=== PATIENT | male | born 1975 | race Caucasian/White ===

== ENCOUNTER 2018-03-15 09:26 | Outpatient (CLI) | payer BC, SELFPAY ==
[2018-03-15 10:41] LABS: Cholesterol 227 mg/dL (50-200); HDL Cholesterol 35 mg/dL (40-60); LDL CHOLESTEROL 172 mg/dL (<100); Triglyceride 97 mg/dL (30-150)
== END 2018-03-15 09:46 ==
PROVIDERS: PCP Nurse Practitioner; Visit Provider Family Medicine
DX: Z13.220 Encounter for screening for lipoid disorders (principal)
CPT/HCPCS: 36415; 80061; 83721

== ENCOUNTER 2018-07-09 19:35 | Outpatient (REF) | payer OTHER, SELFPAY ==
[2018-07-09 18:54] LABS: Abs Immature Grans 0.06 k/cumm (0.0-0.09); Absolute Basophil Count 0.02 k/cumm (0.0-0.2); Absolute Eosinophil Count 0.41 k/cumm (0.0-0.7); Absolute Lymphocyte Count 1.57 k/cumm (1.2-3.4); Absolute Monocyte Count 0.86 k/cumm (0.11-0.7); Absolute Neutrophil Count 5.62 k/cumm (1.2-6.7); Basophils % 0.2; Eosinophils % 4.8; HCT 43.1 % (40.0-50.0); HGB 14.5 g/dL (13.5-17.5); Immature Grans % 0.7; Lymphocytes % 18.4; Mean Corp. HGB Concentration 33.6 g/dL (32.0-36.0); Mean Corpuscular Hemoglobin 28.1 pg (27.0-33.0); Mean Corpuscular Volume 83.5 fL (80-95); Mean Platelet Volume 11.1 fL (8.0-11.0); Monocytes % 10.1; Neutrophils % 65.8; Platelet Count 149 x1000/uL (130-400); RBC 5.16 m/cumm (4.50-6.00); RBC Distribution Width 13.9 % (11.8-14.1); White Blood Cell Count 8.54 k/cumm (4.4-10.8)
[2018-07-09 19:00] LABS: Mono Screening Negative (Negative)
== END 2018-07-09 19:55 ==
LOC: LBN 19:35
PROVIDERS: Family Medicine; PCP Nurse Practitioner; Visit Provider Nurse Practitioner
DX: B34.9 Viral infection, unspecified (principal)
CPT/HCPCS: 85025; 86308

== ENCOUNTER 2018-07-20 01:56 | Outpatient (CLI) | payer OTHER, SELFPAY ==
[2018-07-20 10:10] LABS: ALT 24 U/L (12-78); AST 15 U/L (15-37); Albumin 4.1 g/dL (3.4-5.0); Alkaline Phosphatase 85 U/L (46-116); Anion Gap 11.5 mmol/L (3-11); BUN 21 mg/dL (7-18); Bilirubin, Total 0.4 mg/dL (0.2-1.0); CO2 28.5 mmol/L (21.0-32.0); CREATININE 1.24 mg/dL (0.70-1.30); Calcium 9.5 mg/dL (8.5-10.1); Chloride 106 mmol/L (98-107); Cholesterol 151 mg/dL (50-200); Glucose 114 mg/dL (70-100); HDL Cholesterol 31 mg/dL (40-60); LDL CHOLESTEROL 97 mg/dL (<100); Sodium 146 mmol/L (136-145); Triglyceride 110 mg/dL (30-150)
== END 2018-07-20 02:16 ==
PROVIDERS: PCP Nurse Practitioner; Visit Provider Nurse Practitioner
DX: E78.00 Pure hypercholesterolemia, unspecified (principal)
CPT/HCPCS: 36415; 80053; 80061; 83721

== ENCOUNTER 2020-11-30 04:06 | Outpatient (CLI) | payer BC, SELFPAY ==
[2020-11-30 09:33] LABS: Hemoglobin A1C 5.4 % (<5.7)
[2020-11-30 10:15] LABS: ALT 23 U/L (16-63); AST 15 U/L (15-37); Alkaline Phosphatase 63 U/L (46-116); Anion Gap 8.2 mmol/L (3-11); BUN 16 mg/dL (7-18); Bilirubin, Total 0.4 mg/dL (0.2-1.0); CO2 29.8 mmol/L (21.0-32.0); Calculated LDL 181 mg/dL (<100); Chloride 109 mmol/L (98-107); Cholesterol 258 mg/dL (<200); Glucose 111 mg/dL (74-106); HDL Cholesterol 35 mg/dL (40-60); Potassium 4.2 mmol/L (3.5-5.1); Sodium 147 mmol/L (136-145); TSH (W/Ref FT4) 1.04 uIU/mL (0.36-3.74); Total Protein 6.9 g/dL (6.4-8.2); Triglyceride 211 mg/dL (<150)
== END 2020-11-30 04:07 | disposition home or self-care (01) ==
LOC: LBO 04:07
PROVIDERS: PCP Nurse Practitioner; Visit Provider Nurse Practitioner
DX: E78.00 Pure hypercholesterolemia, unspecified (principal); E66.9 Obesity, unspecified; R63.5 Abnormal weight gain
CPT/HCPCS: 36415; 80053; 80061; 83036; 84443

== ENCOUNTER 2021-06-26 09:59 | Emergency (ER) | payer BC, SELFPAY ==
--- NOTE | 2021-06-26 10:00 | RT.EKG_ITS ---
APPROVED REPORT Exam: Resting ECG Reason for Exam: cp/sob Patient Location: E HR:78 bpm ECG Measurements Heart Rate 78 AXIS AK 145 P 51 QRSd 81 QRS 41 QT 360 T 26 QTc 410 Conclusion Sinus rhythm...normal P axis, V-rate 60- 99. Sinus. Normal axis. No STEMI. I have reviewed and interpreted ECG and agree with software generated interpretation.
[2021-06-26 10:04] VITALS: BP 124/75; PULSE 77; RESP 18; TEMP 36.3; O2SAT 98
[2021-06-26] MEDS: predniSONE 20 MG TAB 40 MG PO (10:38)
--- NOTE | 2021-06-26 10:54 | DI.RAD_ITS ---
Exam(s) XR PORTABLE CHEST AP EXAM: XR PORTABLE CHEST AP CLINICAL HISTORY: cough TECHNIQUE: 2D digital imaging was performed of the chest. One image was obtained. An AP view was ob tained. COMPARISON: No exams were available for comparison FINDINGS: MEDIASTINUM: Normal. HEART: Normal. PULMONARY VASCULATURE: Normal. LUNGS: Clear. PLEURAL SPACE: No pleural effusion or pneumothorax. BONE:Within normal limits for the patient's age. OTHER FINDINGS:Normal. IMPRESSION: No acute pulmonary findings. DATA REPOSITORY: RADIATION DOSE DELIVERED:
--- NOTE | 2021-06-26 10:58 | DI.VRAD_ITS ---
PROCEDURE INFORMATION: Exam: XR Chest Exam date and time: 06/26/2021 10:32 AM Age: 45 years old Clinical indication: Cough TECHNIQUE: Imaging protocol: XR of the chest. Views: 1 view. COMPARISON: CR CHEST 2 VIEWS PA,LAT 08/20/2014 8:27 PM FINDINGS: Lungs: Unremarkable. No consolidation. Pleural spaces: Unremarkable. No pleural effusion. No pneumothorax. Heart/Mediastinum: Unremarkable. No cardiomegaly. Bones/joints: Unremarkable. IMPRESSION: No acute findings. Dictated and Authenticated by: Riley Contreras MD. Ordering:JOSE Edward MD
--- NOTE | 2021-06-26 11:04 | W.ED.GENAD ---
Discharge Plan Disposition Patient Disposition: HOME Condition: Good Discharge Details Clinical Impression: Bronchitis Primary Care Provider: Becka Cooley ED Provider: Cheyanne Alanis Home Meds and New Rx's Prescriptions: New prednisone 20 mg tablet 40 mg PO DAILY Qty: 4 0RF benzonatate 200 mg capsule 200 mg PO BID-TID PRNQty: 10 0RF Continued buspirone 10 mg tablet 10 mg PO BID Qty: 180 3RF ascorbic acid (vitamin C) 1,000 mg tablet 1 g PO DAILY 0RF cetirizine [Aller-Otoniel] 10 mg tablet 10 mg PO DAILY PRN0RF Digestive Advantage Advanced 10 billion cell capsule PO 0RF cholecalciferol (vitamin D3) 75 mcg (3,000 unit) tablet 1,000 unit PO DAILY 0RF Stool Softener 50 mg capsule 50 mg PO DAILY 0RF apple cider vinegar 300 mg tablet PO 0RF Digestive Advantage Advanced 10 billion cell capsule PO 0RF omega 7-kbu-xzc-fish oil [Fish Oil] 1,200 (144-216) mg capsule PO 0RF magnesium oxide 500 mg capsule 500 mg PO DAILY 0RF fluticasone propionate [Flonase Allergy Relief] 50 mcg/actuation spray,suspension 2 spray intranasal DAILY Qty: 1 12RF Rx Instructions: administer into each nostril levalbuterol tartrate [Xopenex HFA] 15 GM HFA aerosol inhaler 2 puff Inhalation Q4H PRN PRNQty: 1 1RF Rx Instructions: for wheezing sildenafil [Viagra] 50 MG tablet 25 - 50 mg PO DAILY PRNQty: 20 1RF modafinil 200 mg tablet 100 - 200 mg PO DAILY 0RF citalopram 40 mg tablet 40 mg PO DAILY Qty: 90 0RF amoxicillin-pot clavulanate 875-125 mg tablet 1 tab PO BID 0RF Label Comments: TAKE ONE TABLET BY MOUTH TWICE A DAY Discharge Instructions Instructions: Acute Bronchitis (ED) Additional Instructions: Take the Tessalon Perles as needed for cough Take the prednisone daily for the next 2 days, you have received a dose in the emergency room today, you may take another dose tomorrow and the following day Continue to use your inhaler, 2 puffs with the spacer every 4 hours as needed for symptom control Not recommending Claritin daily, you may use [id number] loratadine, medication to help with the fluid behind your ears Take Tylenol 650 mg every 6 hours as needed for discomfort Reassessment with your primary care physician in 48 to 72 hours as needed Isolate until your Covid swab returns, this means wear a mask and do not leave your house with exposure to others until this test is returned This result should return between 48 to 72 hours Return precautions for chest pain, shortness of breath, or should you have new or worsening complaints Referrals: Becka Cooley NP [Primary Care Provider] - Discharge Data Discharge Date/Time-TO BE ENTERED AT DEPARTURE: 06/26/21 11:31 Medical Decision Making Patient appears well, his vitals are stable, he is not hypoxic, he is in no respiratory distress We will discharge him home on prednisone, he has an inhaler at home which he is using with a spacer He is also supplied a Tessalon Perles Chest x-ray does not show acute abnormality I have low suspicion for pulmonary embolism or other more ominous pathologies based on my clinical today Recheck in 48 hours recommended in early return precautions discussed should patient worsen, signs and symptoms reviewed Medical Records Medical records reviewed: Yes I reviewed the patient's medical records. Lab Data Lab results reviewed: Yes I reviewed the patient's lab results. HPI General Date/Time Provider Initiated Documentation: 06/26/21 10:13. HPI Narrative: This 45-year-old male presents with report of cough and upper respiratory symptoms for the past 2 weeks. He is been evaluated previously at urgent care and initiated on Augmentin which she has completed. He denies any chest pain or shortness of breath. He mostly complains of a bronchospastic cough. He denies any hemoptysis. He denies any fever or chills. He is not vaccinated COVID-19 he reportedly had a negative Covid test 2 weeks ago. Related Data Home Medications Medication Instructions Recorded Confirmed levalbuterol tartrate 45 2 puff INHALATION Q4H PRN PRN #1 11/14/13 06/26/21 mcg/actuation aerosol inhaler inh (Xopenex HFA) sildenafil 50 mg tablet (Viagra) 25 - 50 mg PO DAILY PRN #20 tab 03/19/17 06/26/21 buspirone 10 mg tablet 10 mg PO BID #180 tab 05/25/20 06/26/21 L.acidoph, paracasei,B. lactis 10 cell PO 11/30/20 11/30/20 billion cell capsule (Digestive Advantage Advanced Probiotic) L.acidoph, paracasei,B. lactis 10 cell PO 11/30/20 11/30/20 billion cell capsule (Digestive Advantage Advanced Probiotic) apple cider vinegar 300 mg tablet mg PO 11/30/20 11/30/20 ascorbic acid (vitamin C) 1,000 mg 1 g PO DAILY tab 11/30/20 06/26/21 tablet cetirizine 10 mg tablet (Aller-Otoniel) 10 mg PO DAILY PRN 11/30/20 06/26/21 cholecalciferol (vitamin D3) 75 1,000 unit PO DAILY tab 11/30/20 11/30/20 mcg (3,000 unit) tablet docusate sodium 50 mg capsule 50 mg PO DAILY 11/30/20 06/26/21 (Stool Softener) fluticasone propionate 50 2 spray INTRANASAL DAILY #1 unit 11/30/20 06/26/21 mcg/actuation nasal spray,suspension (Flonase Allergy Relief) magnesium oxide 500 mg capsule 500 mg PO DAILY 11/30/20 06/26/21 omega 6-hau-yzj-fish oil 1,200 mg cap PO 11/30/20 11/30/20 (144 mg-216 mg) capsule (Fish Oil) modafinil 200 mg tablet 100 - 200 mg PO DAILY tab 03/16/21 06/26/21 citalopram 40 mg tablet 40 mg PO DAILY #90 tab 06/13/21 06/26/21 amoxicillin 875 mg-potassium 1 tab PO BID 06/26/21 06/26/21 clavulanate 125 mg tablet benzonatate 200 mg capsule 200 mg PO BID-TID PRN #10 cap 06/26/21 prednisone 20 mg tablet 40 mg PO DAILY #4 tab 06/26/21 Previous Rx's Medication Instructions Recorded buspirone 10 mg tablet 10 mg PO BID #180 tab 05/25/20 fluticasone propionate 50 2 spray INTRANASAL DAILY #1 unit 11/30/20 mcg/actuation nasal spray,suspension (Flonase Allergy Relief) citalopram 40 mg tablet 40 mg PO DAILY #90 tab 06/13/21 benzonatate 200 mg capsule 200 mg PO BID-TID PRN #10 cap 06/26/21 prednisone 20 mg tablet 40 mg PO DAILY #4 tab 06/26/21 Allergies Allergy/AdvReac Type Severity Reaction Status Date / Time meperidine HCl [From Demerol] Allergy Skin Rash Verified 06/26/21 10:08 General Stated Complaint: RespSymp MANSOOR: 3 Review of Systems All systems reviewed & are unremarkable except as noted in HPI and below PFSH All Active Problems (Updated 06/26/21 @ 11:12 by BOOGIE Landeros) Bronchitis (Acute) Circadian rhythm sleep disorder, shift work type (Acute) [facility] Sleep 03/14/21 note History of uvulopalatopharyngoplasty (Acute) Chronic allergic rhinitis (Acute) Weight gain (Acute) Depression (Chronic 01/28/15) Elevated cholesterol (Chronic) Tobacco abuse (Chronic) Restless leg syndrome (Acute 12/13/16) sleep clinic 12/12/16 Premature ejaculation (Acute 01/28/15) Palpitations (Acute 09/25/14) Obstructive sleep apnea syndrome (Acute 06/20/11) F/U at sleep clinic with rj Wilson 11/06/17 Obesity (Chronic 09/25/14) Gastroesophageal reflux disease (Chronic 06/20/11) Anxiety (Acute 01/28/15) Unspecified asthma (Acute 06/20/11) Surgical History (Updated 11/30/20 @ 15:42 by Denis Mason MD) Cholecystectomy H/O left knee surgery History of ear surgery Tubes per patient History of throat surgery per patient Uvula removed History of vasectomy Family History Mother Diabetes Seizures Stroke Father No problems noted. Sister Heart disease Brother No problems noted. Other Hypothyroid Social History Smoking/Tobacco Use Status: Former Tobacco Use Quit Date: 04/24/19 Smoking risk assessment performed?: Yes Alcohol Intake: current Alcohol Intake frequency: holidays/special occasions only Drug use: Never Substance use type: does not use Household members: spouse Housing: house Number of Children: 3 Communication Needs: Corrective Lenses Do you need help understanding health information?: Never current occupation: [employer] truck driver Sexually active: Yes What is your relationship status?: Panel score (0-1 are the most socially isolated patients): 1 What type of physical activity do you participate in: none Seatbelt use: always Drive intox or ride w/intox driver retraining instructor: No Do you feel safe at home: Yes Do you feel safe in your relationship?: Yes Exam Const General: cooperative, comfortable and no acute distress HENMT Head: normal to inspection Eyes Sclera: sclerae normal Chest Chest: normal inspection of the chest Resp Effort & Inspection: normal respiratory effort Auscultation: clear to auscultation bilaterally Other: No respiratory distress, no wheezing Cardio Rate: regular rate Rhythm: regular rhythm Skin General skin exam: no rashes or lesions noted Neuro General: patient alert and patient oriented x3 Extrem Other: No calf swelling or tenderness Course Vital Signs Vital signs: Vital Signs Temperature 36.3 C L 06/26/21 10:04 Pulse 77 06/26/21 10:04 Respiratory Rate 18 06/26/21 10:04 Blood Pressure 124/75 06/26/21 10:04 Pulse Oximetry 98 06/26/21 10:04 Temperature 36.3 C L 06/26/21 10:04 Temperature Source Temporal Artery Scan 06/26/21 10:04 Pulse 77 06/26/21 10:04 Respiratory Rate 18 06/26/21 10:04 Respiratory Effort 06/26/21 10:10 Respiratory Depth Normal 06/26/21 10:10 Blood Pressure 124/75 06/26/21 10:04 Blood Pressure Position Sitting 06/26/21 10:04 Pulse Oximetry 98 06/26/21 10:04 Oxygen Delivery Method Room Air 06/26/21 10:04 Oxygen Flow Rate 0 06/26/21 10:04
[2021-06-26 11:32] VITALS: BP 117/75; PULSE 79; RESP 18; O2SAT 98
[2021-06-27 12:46] LABS: COVID-19 RT-PCR UVMMC Result Negative (Negative)
== END 2021-06-26 11:31 | disposition home or self-care (01) ==
PROVIDERS: Emergency Provider Physician Assistant; PCP Nurse Practitioner
DX: J20.9 Acute bronchitis, unspecified (principal); R05.1 Acute cough; R07.9 Chest pain, unspecified; R06.02 Shortness of breath; Z20.822 Contact with and (suspected) exposure to COVID-19
CPT/HCPCS: 36415; 93005; 99284; U0003; 71045; 93010; J7512

== ENCOUNTER 2022-08-04 03:35 | Outpatient (CLI) | payer BC, SELFPAY ==
[2022-08-04 13:03] LABS: Hemoglobin A1C 5.7 % (<5.7)
[2022-08-04 13:27] LABS: ALT 28 U/L (16-63); AST 15 U/L (15-37); Albumin 3.7 g/dL (3.4-5.0); Alkaline Phosphatase 68 U/L (46-116); Anion Gap 7.8 mmol/L (3-11); BUN 17 mg/dL (7-18); Bilirubin, Total 0.4 mg/dL (0.2-1.0); CO2 28.2 mmol/L (21.0-32.0); CREATININE 1.1 mg/dL (0.70-1.30); Calcium 8.7 mg/dL (8.5-10.1); Calculated LDL 184 mg/dL (<100); Chloride 107 mmol/L (98-107); Cholesterol 254 mg/dL (<200); Estimated GFR 82.29 (mL/min/1.73m2); Glucose 101 mg/dL (74-106); HDL Cholesterol 41 mg/dL (40-60); Potassium 4.2 mmol/L (3.5-5.1); Sodium 143 mmol/L (136-145); TSH (W/Ref FT4) 0.84 uIU/mL (0.36-3.74); Total Protein 7.2 g/dL (6.4-8.2); Triglyceride 146 mg/dL (<150)
== END 2022-08-04 03:36 | disposition home or self-care (01) ==
LOC: LBO 03:35
PROVIDERS: Absent Provider Nurse Practitioner; PCP Nurse Practitioner; Referring Provider Nurse Practitioner; Visit Provider Nurse Practitioner
DX: E66.9 Obesity, unspecified (principal); E78.5 Hyperlipidemia, unspecified; G47.33 Obstructive sleep apnea (adult) (pediatric)
CPT/HCPCS: 36415; 80053; 80061; 83036; 84443